=== PATIENT | female | born 1955 | race Caucasian/White ===

== ENCOUNTER → 2017-08-27 | Outpatient (CLI) | payer OTHER | LOC: RAD 09:46 | DX: Z12.31 Encounter for screening mammogram for malignant neoplasm of breast (principal) ==

== ENCOUNTER → 2018-08-30 | Outpatient (CLI) | payer OTHER | LOC: BC 08:50 | DX: Z12.31 Encounter for screening mammogram for malignant neoplasm of breast (principal) ==

== ENCOUNTER → 2019-09-08 | Outpatient (CLI) | payer OTHER | LOC: RAD 13:36 | DX: Z12.31 Encounter for screening mammogram for malignant neoplasm of breast (principal) ==

== ENCOUNTER → 2020-10-24 | Outpatient (CLI) | payer OTHER | LOC: BC 09:48 → RAD 10:02 | PROVIDERS: ATTEND Internal Medicine | DX: Z12.31 Encounter for screening mammogram for malignant neoplasm of breast (principal) ==

== ENCOUNTER → 2021-04-29 | Outpatient (CLI) | payer OTHER ==
[~2021-04-29] MED LIST: AMARYL2 M1 PO; CALCIUM + VITA1 EACH PO; CENTRUM SILVER1 EAC6 PO; FISH OIL-OMEGA1 EACH PO; GLUMETZA1000 PO; JARDIANCE25 MG PO; LEVO-T75 MCG PO; LOVASTAT40 PO; VASOTEC5 MG PO
== END ==
LOC: LAB 10:18
PROVIDERS: ATTEND Student in an Organized Health Care Education/Training Program
DX: Z01.812 Encounter for preprocedural laboratory examination (principal); Z20.822 Contact with and (suspected) exposure to COVID-19

== ENCOUNTER → 2021-05-01 | Outpatient (CLI) | payer OTHER ==
[~2021-05-01] VITALS: Ht 167.6 cm; Wt 83.9 kg
--- NOTE | 2021-05-03 10:47 | P ---
[facility] [place] [address] PROCEDURE REPORT Name: ASHKAN BINGHAM Room #: REG Barbara Cheri.#: [id number] Admission: 05/01/21 Attend Phys: Maximilian Wylie Discharge: Date of : 53 Report #: [id number] THIS REPORT FOR: cc: Elana Garcia MD, Carrie W. MD McElhinney, Christian C. MD ~ cc: Elana Garcia MD DATE OF SERVICE: 05/01/2021 PROCEDURE PERFORMED: Colonoscopy with biopsies. HISTORY OF PRESENT ILLNESS: The patient is a 66-year-old female with a history of colon polyps in 2014. She is here for routine followup. She denies any symptoms, no family history of colon cancer. DESCRIPTION OF PROCEDURE: The risks and benefits of the procedure were explained to the patient, those risks including but not limited to bleeding, perforation and the risk of sedation. She understood these risks and gave informed consent. Sedation was given using propofol per anesthesia. Next, a digital rectal exam was initially performed, which was normal. Next, using a standard Olympus colonoscope, the scope was placed in the patient's anus and advanced under direct vision to the cecum. The overall prep was good. In the cecum, there was a 3 mm sessile polyp. This was removed with cold forceps, otherwise normal. The ileocecal valve was normal. The ascending, transverse, descending and sigmoid colon were all normal. The rectal mucosa was normal. On retroflexion, small nonbleeding internal hemorrhoids, small external hemorrhoids also noted, nonbleeding. The scope was then withdrawn and the procedure terminated. The patient tolerated the procedure well. IMPRESSION: 1. Small colonic polyp. 2. Small internal and external hemorrhoids. 3. Otherwise, normal colonoscopy. RECOMMENDATIONS: 1. Await biopsy results. 2. Repeat colonoscopy in 5 years. Thank you for allowing me to participate in her care. <ELECTRONICALLY SIGNED> By: Maximilian Blackman MD 05/03/21 1047 [id number] Maximilian Blackman MD /nt
--- NOTE | 2021-05-03 12:07 | PATH ---
[facility] [address] [place] [address] PATHOLOGY RPT PROCEDURE Name: ASHKAN BINGHAM Room #: REG CL M..#: [id number] Admission: 05/01/21 Date of : 53 Discharge: Report #: [id number] Path Case #: [id number] Accession Number: [id number] . 01 Material submitted: . cecum - CECAL POLYP . 01 Clinical history: . COLONOSCOPY COLON POLYP AND HEMORRHOIDS . 02 Diagnosis: Polyp, cecal polyp, endoscopic biopsy: - Minute tubular adenoma. - Negative for high-grade dysplasia. (IUV:leadite heater; 05/02/2021) MBR 05/02/2021 1638 Local . 02 Electronically signed: . Enedelia Stover MD, Pathologist NPI- [id number] . 01 Gross description: . The specimen is received in formalin, labeled "Grossnickle, Ashkan, cecal polyp". Received is a single segment of pale stephens tissue measuring 0.9 cm in maximum dimensions. The specimen is submitted entirely in cassette A1. ([facility]; 05/01/2021) NRI/NRI 05/01/2021 1829 Local . 02 Pathologist provided ICD-10: D12.0 . 02 CPT . 576557 Specimen Comment: A courtesy copy of this report has been sent to [phone], [phone] Specimen Comment: [phone] Specimen Comment: Report sent to / DR CALDERON Performed at: [address], [place] [id number] MD Castillo Dickens MD Phone: [phone] Performed at: [address] [id number] MD Enedelia Stover MD Phone: [phone]
== END | disposition home or self-care (01) ==
LOC: GI
PROVIDERS: ATTEND Specialist
DX: Z12.11 Encounter for screening for malignant neoplasm of colon (principal); Z86.010 Personal history of colon polyps; D12.0 Benign neoplasm of cecum; K64.8 Other hemorrhoids; K64.4 Residual hemorrhoidal skin tags; I10 Essential (primary) hypertension; E03.9 Hypothyroidism, unspecified; E78.00 Pure hypercholesterolemia, unspecified; E11.9 Type 2 diabetes mellitus without complications; Z98.890 Other specified postprocedural states; Z79.899 Other long term (current) drug therapy
CPT/HCPCS: 62110; 62900